=== PATIENT | male | born 1995 | race Hispanic/Latino ===

== ENCOUNTER 2022-12-18 13:28 | Emergency (ER) | payer OTHER, SELFPAY ==
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
[2022-12-18 13:40] VITALS: BP 132/66; PULSE 62; RESP 16; TEMP 36.6; O2SAT 99
== END 2022-12-18 14:18 | disposition home or self-care (01) ==
PROVIDERS: Emergency Provider Nurse Practitioner Family
DX: S39.012A Strain of muscle, fascia and tendon of lower back, initial encounter (principal); V43.52XA Car driver injured in collision with other type car in traffic accident, initial encounter
CPT/HCPCS: 72100; 99213; G0463

== ENCOUNTER 2023-05-08 00:32 | Emergency (ER) | payer OTHER, SELFPAY ==
[2023-05-08 00:40] VITALS: BP 129/73; PULSE 61; RESP 15; TEMP 37.3; O2SAT 100
--- NOTE | 2023-05-08 01:50 | ED.UPPEXIN ---
HPI - Extremity Injury (Upper) General Chief Complaint: Extremity Injury, Upper Stated Complaint: left thumb laceration Time Seen by Provider: 05/08/23 01:13 Source: patient Mode of arrival: ambulatory Limitations: no limitations History of Present Illness HPI narrative: This is a 27 year old male that presents to the ER for laceration to the left thumb sustained in the afternoon. Reports at work he accidentally cut it with a knife. Reports bleeding and pain to the area. Denies decreased ROM or numbness. Related Data Allergies Allergy/AdvReac Type Severity Reaction Status Date / Time No Known Allergies Allergy Verified 12/18/22 13:46 [facility] Past Medical History Medical History (Updated 05/08/23 @ 01:58 by Fabi Herrera PA-C) No active medical problems Social History Social History (Updated 05/08/23 @ 01:58 by Fabi Herrera PA-C) Substance use: never Exam Narrative: GENERAL: Well-appearing, well-nourished, and in no acute distress. HEAD: Normocephalic, atraumatic. EYES: EOMI. EXTREMITIES: Normal range of motion. No edema. Left first finger with 1cm circular avulsion injury to the tip of the finger SKIN: Warm, dry, no rash. NEURO: No focal deficits. Alert and oriented x3. PSYCH: Normal mood and affect Course Course Emergency Course: Patient agrees with plan of care Vital Signs Vital signs: Vital Signs Temperature 99.1 F 05/08/23 00:40 Pulse Rate 61 05/08/23 00:40 Respiratory Rate 15 05/08/23 00:40 Blood Pressure 129/73 05/08/23 00:40 Pulse Oximetry 100 05/08/23 00:40 Oxygen Delivery Room Air 05/08/23 00:40 Temperature 99.1 F 05/08/23 00:40 Pulse Rate 61 05/08/23 00:40 Respiratory Rate 15 05/08/23 00:40 Blood Pressure 129/73 05/08/23 00:40 Pulse Oximetry 100 05/08/23 00:40 Oxygen Delivery Room Air 05/08/23 00:40 Procedures Laceration Laceration 1: Date: 05/08/23 Time: 01:58 Site: hand Side (If applicable): left Size (cm): 1 Description: other (avulsion) Depth: simple, single layer Pre-repair: irrigated ====== Skin Level ====== ====== Subcutaneous Layer ====== ====== Muscle Layer ====== ====== Tendon Layer ====== Dressing: Wound irrigated and bleeding controlled with Surgicel MDM - Extremity Injury (Upper) MDM Narrative Medical decision making narrative: Patient presents to the ER for laceration to the left thumb. Patient with avulsion injury. Wound was irrigated and bleeding controlled with surgicel. Patient is up to date on tetanus. He was educated on wound care. He is to follow up with PCP. He was given warnings to return to the ER Differential Diagnosis Differential diagnosis: Likely other (skin avulsion, laceration, abrasion) Critical Care Time Critical Care Time Critical Care Time: No Discharge Plan Discharge Clinical Impression: Avulsion of skin Patient Disposition: Home, Self-Care Condition: Stable Instructions: Antibiotic Form, Skin Avulsion (ED) Additional Instructions: Return to the emergency department if you experience fever, redness or swelling of your wound, abnormal drainage from your wound, or any other symptoms that are concerning to you. Leave bottom layer of gauze on until it falls off. You may change top bandages daily. Take oral antibiotic as prescribed Follow-up with your primary care doctor for wound check Prescriptions: New cephalexin 500 mg capsule 500 mg PO Q8H 5 Days Qty: 15 0RF No Action cyclobenzaprine 10 mg tablet 10 mg PO Q8H PRN (Reason: muscle spasm) 7 Days Qty: 21 0RF naproxen 500 mg tablet 500 mg PO BID PRN (Reason: pain) 7 Days Qty: 14 0RF Follow-up/Referrals: Reji Ross MD [Physician] - PHYSICIAN,MACHINE LACER [Primary Care Provider] -
[2023-05-08] MEDS: HYDROcodone/acetaminophen (*CRX) 5-325 MG TABLET 1 TAB PO (02:23)
== END 2023-05-08 02:25 | disposition home or self-care (01) ==
PROVIDERS: Emergency Provider Physician Assistant
DX: S61.012A Laceration without foreign body of left thumb without damage to nail, initial encounter (principal); W26.0XXA Contact with knife, initial encounter
CPT/HCPCS: 99283; A9270

== ENCOUNTER 2025-01-14 17:57 | Emergency (ER) | payer SELFPAY ==
--- NOTE | ~2025-01-14 | XR_ITS ---
XR foot LT min 3V Ordering provider: Fabi Herrera PA-C History: . dog bite . Comparison: None. FINDINGS: BONES: No acute fracture or dislocation. JOINT SPACES: Normal. No tarsal coalition. SOFT TISSUES: Normal. IMPRESSION: No acute osseous abnormality left foot. Reviewed, dictated and finalized at location A.
--- OUTSIDE RECORDS SUMMARY | 2025-01-14 17:59 | XMS_ITS | Clinical Summary ---
Author Organization [facility] Care Team Providers Care Management Scientist Name Role Phone Unavailable Primary Care Provider Unavailabl e Social History Tobacco Use Types Packs/Day Years Used Date Smoking Tobacco: Never Assessed Sex and Gender Information Value Date Recorded Sex Assigned at Not on file Legal Sex Male 12:50 PM CDT Gender Identity Not on file Sexual Orientation Not on file Plan of Treatment Health Maintenance Due Date Last Done Comments Hepatitis C Virus (HCV) Screening 1995 Influenza Immunization (#1) 2024 SARS-COV-2 Immunization ( season) 2024 Respiratory Syncytial Virus (RSV) Immunization (Adult) (1 - 1-dose 75+ series) 2068 Hepatitis B Immunization Completed 004, 06/19/2001, 10/24/2000 DTaP/Tdap/Td Immunization Discontinued 11/03/2014 TdaP Immunization Completed 11/03/2014 Meningococcal Immunization (ACWY) Aged Out No longer eligible based on patient's age to complete this topic Pneumococcal Immunization Combined Aged Out No longer eligible based on patient's age to complete this topic Rotavirus Immunization Aged Out No lo nger eligible based on patient's age to complete this topic
[2025-01-14 18:01] VITALS: BP 118/66; PULSE 91; RESP 16; TEMP 36.8; O2SAT 99
--- NOTE | 2025-01-14 18:03 | ED.ANIMALBIT ---
HPI - Animal Bite General Chief Complaint: Animal Bite <Fabi Herrera PA-C - Last Filed: 01/15/25 10:25> Stated Complaint: dog bite <Fabi Herrera PA-C - Last Filed: 01/15/25 10:25> Time Seen by Provider: 01/14/25 18:03 <Fabi Herrera PA-C - Last Filed: 01/15/25 10:25> Focused HPI: This is a 29 year old male that presents to the ER for dog bite. Sustained just prior to arrival. Reports bites to the left forearm, right lower leg and left foot. Unsure of last tetanus vaccination. GENERAL: Well-appearing, well-nourished, and in no acute distress. HEAD: Normocephalic, atraumatic. CHEST: Clear to auscultation. ?No respiratory distress. HEART: Regular rate and rhythm.? NEURO: ?Alert and oriented x3. Patient screened in triage and initial orders placed.? ?Additional care and disposition to be based upon?diagnostic testing and treatment. <Fabi Herrera PA-C - Last Filed: 01/15/25 10:25> Related Data Allergies/Adverse Reactions: Allergies Allergy/AdvReac Type Severity Reaction Status Date / Time No Known Allergies Allergy Verified 01/14/25 17:59 <Fabi Herrera PA-C - Last Filed: 01/15/25 10:25> Review of Systems Review of Systems: All systems reviewed & are unremarkable except as noted in HPI and below <Fabi Herrera PA-C - Last Filed: 01/15/25 10:25> PMFSH Past Medical History Medical History: Medical History (Updated 01/15/25 @ 00:00 by Alfreda Sunshine) No active medical problems <Fabi Herrera PA-C - Last Filed: 01/15/25 10:25> Social History Social History: Social History (Updated 05/08/23 @ 01:58 by Fabi Herrera PA-C) Substance use: never <Fabi Herrera PA-C - Last Filed: 01/15/25 10:25> Exam Narrative: APPEARANCE: No apparent distress. Head: atraumatic. EYES: EOMI, NOSE: Atraumatic NECK: Trachea midline RESPIRATORY: No increased rate of breathing, CTAB CARDIOVASCULAR: RRR, ABDOMINAL: Non-distended MUSCULOSKELETAl: No obvious deformities NEURO: Alert. Moving 4/4 extremities SKIN:: Focal exam of the left foot showed a small punctate abrasion over the top of the foot with some minimal swelling. Focal exam of the right calf showed a 3 cm horizontal abrasion on the anterior yu and posterior calf PSYCHIATRIC: Normal affect <Harrison Brennan MD - Last Filed: 01/14/25 19:25> Course Vital Signs Vital signs: Vital Signs Temperature 98.2 F 01/14/25 18:01 Pulse Rate 91 01/14/25 18:01 Respiratory Rate 16 01/14/25 18:01 Blood Pressure 118/66 01/14/25 18:01 Pulse Oximetry 99 01/14/25 18:01 Temperature 98.2 F 01/14/25 18:01 Pulse Rate 91 01/14/25 18:01 Respiratory Rate 16 01/14/25 18:01 Blood Pressure 118/66 01/14/25 18:01 Pulse Oximetry 99 01/14/25 18:01 <Fabi Herrera PA-C - Last Filed: 01/15/25 10:25> Vital Signs Temperature 98.2 F 01/14/25 18:01 Pulse Rate 91 01/14/25 18:01 Respiratory Rate 16 01/14/25 18:01 Blood Pressure 118/66 01/14/25 18:01 Pulse Oximetry 99 01/14/25 18:01 Temperature 98.2 F 01/14/25 18:01 Pulse Rate 91 01/14/25 18:01 Respiratory Rate 16 01/14/25 18:01 Blood Pressure 118/66 01/14/25 18:01 Pulse Oximetry 99 01/14/25 18:01 <Harrison Brennan MD - Last Filed: 01/14/25 19:25> MDM - Animal Bite MDM Narrative Medical decision making narrative: -Course: 29-year-old male presenting after being bit by a a neighbor's dog. The dog is up-to-date on shots. None of the bite wounds are deep or require suture repair. Be given tetanus and Augmentin. Given return precautions for signs of infection. <Harrison Brennan MD - Last Filed: 01/14/25 19:25> Imaging Data Radiologist's impression: [facility] Impressions Foot X-Ray 01/14/25 18:26 IMPRESSION: No acute osseous abnormality left foot. <JACQUELYN Cardenas Last Filed: 01/15/25 10:25> Critical Care Time Critical Care Time Critical Care Time: No <JACQUELYN Cardenas Last Filed: 01/15/25 10:25> Discharge Plan Discharge Clinical Impression: Bite by animal <JACQUELYN Cardenas Last Filed: 01/15/25 10:25> Patient Disposition: Home <JACQUELYN Cardenas Last Filed: 01/15/25 10:25> Condition: Stable <JACQUELYN Cardenas Last Filed: 01/15/25 10:25> Instructions: Antibiotic Form, Animal Bite (ED) <JACQUELYN Cardenas Last Filed: 01/15/25 10:25> Additional Instructions: You were seen after a dog bite. Please take a course of Augmentin. If you develop signs of infection like increased redness pain swelling please return ED for re-evaluation. <JACQUELYN Cardenas Last Filed: 01/15/25 10:25> Patient Language: Tamazight <JACQUELYN Cardenas Last Filed: 01/15/25 10:25> Prescriptions: New amoxicillin-pot clavulanate 875-125 mg tablet 1 tablet PO Q12H Qty: 20 0RF No Action cyclobenzaprine 10 mg tablet 10 mg PO Q8H PRN (Reason: muscle spasm) 7 Days Qty: 21 0RF naproxen 500 mg tablet 500 mg PO BID PRN (Reason: pain) 7 Days Qty: 14 0RF cephalexin 500 mg capsule 500 mg PO Q8H 5 Days Qty: 15 0RF <JACQUELYN Cardenas Last Filed: 01/15/25 10:25> Follow-up/Referrals: PHYSICIAN,[employer] PIPE SUPERVISOR [Primary Care Provider] - <JACQUELYN Cardenas Last Filed: 01/15/25 10:25>
--- OUTSIDE RECORDS SUMMARY | 2025-01-14 19:03 | XMS_ITS | Clinical Summary ---
Author Organization [facility] Care Team Providers Care Robotics Mechanic Name Role Phone Unavailable Primary Care Provider [...]
[2025-01-14] MEDS: AMOXICILLIN/CLAVULANATE K 875-125 MG TAB 1 TABLET PO (19:15)
== END 2025-01-14 19:34 | disposition home or self-care (01) ==
PROVIDERS: Emergency Provider Emergency Medicine
DX: S51.852A Open bite of left forearm, initial encounter (principal); S91.352A Open bite, left foot, initial encounter; S81.851A Open bite, right lower leg, initial encounter; W54.0XXA Bitten by dog, initial encounter
CPT/HCPCS: 73630; 99283; A9270